=== PATIENT | male | born 1965 | race American Indian/Alaskan Native ===

== ENCOUNTER 2021-11-23 07:14 | Emergency (ER) | payer MEDICARE ==
--- NOTE | 2021-11-23 08:11 | XRay Report ---
CHEST 1 VIEW 11/23/2021 7:39 AM INDICATION / CLINICAL INFORMATION: esrd on h/d; missed dialysis x2; p/w sob. COMPARISON: 08/20/2021 FINDINGS: SUPPORT DEVICES: None. HEART / MEDIASTINUM: Stable upper limits normal in size. LUNGS / PLEURA: Bilateral lower lobe predominant perihilar opacities. Mild interstitial prominence. N o pneumothorax. ADDITIONAL FINDINGS: No significant additional findings. IMPRESSION: 1. Cardiomegaly and pulmonary edema. Signer Name: Jimmy Barrios MD Signed: 11/23/2021 8:07 AM Workstation Name: [email or web address]
--- NOTE | 2021-11-23 08:36 | Emergency Department Report ---
HPI - General Chief Complaint: Dyspnea/Respdistress PUI?: No Time Seen by Provider: 11/23/21 07:24 - HPI HPI: 56-year-old male with multiple medical comorbidities, including end-stage renal disease on hemodialysis Thursday, presents for evaluation of several days of progressively worsening shortness of breath and difficulty breathing status post missing his last 2 dialysis sessions. Patient states he last underwent hemodialysis on Friday, November 19, 2021. He denies any chest pain, abdominal pain, nausea vomiting fevers or chills. No URI symptoms. EMS placed the patient on BiPAP. Patient states pain is currently 0 out of 10. ED Past Medical Hx - Past Medical History Hx Hypertension: Yes Hx Renal Disease: Yes (HD , , Thu) - Social History Smoking Status: Unknown if ever smoked - Medications Home Medications: Home Medications Medication Instructions Recorded Confirmed Last Taken Type Apixaban [Eliquis] 5 mg PO Q12HR 30 Days #60 tablet 08/21/21 Unknown Rx Aspirin EC [Halfprin EC] 81 mg PO QDAY 08/21/21 08/21/21 Unknown History AtorvaSTATin [Lipitor] 40 mg PO QHS 30 Days #30 tablet 08/21/21 Unknown Rx NIFEdipine XL [Procardia Xl] 30 mg PO DAILY 30 Days #30 tablet 08/21/21 Unknown Rx carvediloL [Coreg] 25 mg PO BID 30 Days #60 tablet 08/21/21 Unknown Rx carvediloL [Coreg] 25 mg PO Q12H 08/21/21 08/21/21 Unknown History cloNIDine [Catapres] 0.1 mg PO BID 30 Days #60 tablet 08/21/21 Unknown Rx ED Review of Systems ROS: Stated complaint: JOSE DAVID Other details as noted in HPI Comment: All other systems reviewed and negative Respiratory: shortness of breath. denies: cough, orthopnea, SOB with exertion, SOB at rest, stridor Cardiovascular: as per HPI Physical Exam - Physical Exam Vital Signs: Vital Signs 11/23/21 11/23/21 07:46 07:58 Pulse Rate 113 H 113 H Respiratory 30 H 32 H Rate Blood Pressure 218/149 O2 Sat by Pulse 100 98 Oximetry Physical Exam: Gen: thin adult male, sitting in tripod position, dyspneic, diaphoretic, unable to speak; moderate respiratory distress HEENT: Normocephalic atraumatic pupils equally round and reactive to light e xtraocular muscles intact sclera anicteric Neck: Full range of motion, no midline spinal tenderness palpation, no JVD, no carotid bruits, no nuchal rigidity CVS: S1-S2 regular rate and rhythm with no gallops rubs or murmurs, chest wall nontender Pulmonary: coarse breath sounds in all lung guajardo; Abdomen: Soft nondistended nontender no guarding or rebound tenderness, no palpable deformities or step-offs, normal active bowel sounds, no hepatosplenomegaly, no pulsatile masses : Deferred Extremities: No cyanosis no clubbing no edema, intact distal peripheral pulses, Integumentary: Skin normal, no petechia no purpura no abscess no lacerations no evidence of trauma no evidence of infection Neuro: Patient is awake alert and oriented to person place time situation, mentating well, cranial nerves II through XII intact, no focal neurodeficits, sensation grossly tact Psych: Calm cooperative, mood affect normal ED Course Vital Signs 11/23/21 11/23/21 07:46 07:58 Pulse Rate 113 H 113 H Respiratory 30 H 32 H Rate Blood Pressure 218/149 O2 Sat by Pulse 100 98 Oximetry - Reevaluation(s) Reevaluation #1: 11/23/21 08:40 Pt reassessed; he is on bipap; he appears improved and is able to speak in full sentences; he states his stogy maker is Dr. Garay of [facility] ED Medical Decision Making - Lab Data Result diagrams: 11/23/21 08:35 11/23/21 08:35 - EKG Data -: EKG Interpreted by Me EKG shows normal: sinus rhythm Rate: tachycardia - EKG Data When compared to previous EKG there are: no significant change Interpretation: no acute changes 11/23/21 08:41 EKG interpreted by me: Ventricular rate 115 bpm. P waves are present and proceed every QRS complex. Intervals normal. No ST segment depressions or elevations. Patient has nonspecific T wave abnormalities in lateral leads. Left ventricular hypertrophy. No ectopic. No arrhythmia. Normal axis. Sinus tachycardia - Radiology Data Radiology results: report reviewed - Medical Decision Making 56yo M w/hx of ESRD on H/D Tue, Magda, Sat, bibems for evaluation of respiratory distress. The patient was hypoxic, tachypneic and dyspneic on arrival.He was emergently placed on bipap with concomittant improvement in his respiratory status. Labs and diagnostic imaging reviewed. Case reviewed with on-call stogy maker, . Per our discussion, patient to be admitted to the hospitalist service. He will arrange for the patient to undergo hemodialysis today. Critical Care Time: No Critical care attestation.: If time is entered above; I have spent that time in minutes in the direct care of this critically ill patient, excluding procedure time. ED Disposition Clinical Impression: Respiratory failure with hypoxia, Dialysis patient, noncompliant Disposition: ADMITTED INPATIENT Is pt being admited?: Yes Does the pt Need Aspirin: No Condition: Stable Instructions: Apixaban oral tablets
[2021-11-23 09:08] LABS: Basophils # (Auto) 0.1 K/mm3 (0.0-0.1); Basophils % (Auto) 0.6 % (0.0-1.8); Eosinophils # (Auto) 0.1 K/mm3 (0.0-0.4); Hematocrit 38.2 % (35.5-45.6); Hemoglobin 11.9 gm/dl (11.8-15.2); Lymphocytes # (Auto) 1.5 K/mm3 (1.2-5.4); Lymphocytes % (Auto) 10.6 % (13.4-35.0); Mean Corpuscular HGB Conc 31 % (32-34); Mean Corpuscular Volume 99 fl (84-94); Monocytes # (Auto) 0.6 K/mm3 (0.0-0.8); Monocytes % (Auto) 4.1 % (0.0-7.3); Platelet Count 279 K/mm3 (140-440); Red Blood Count 3.86 M/mm3 (3.65-5.03); Red Cell Distribution Width 17.4 % (13.2-15.2)
[2021-11-23] MEDS ORDERED: ACETAMINOPHEN 325 MG TAB PO PRN ×2 (09:13→09:25)
[2021-11-23] MEDS ORDERED: ONDANSETRON 4 MG/2 ML INJ IV PRN ×2 (09:13→09:25)
[2021-11-23] MEDS ORDERED: MORPHINE 2 MG/1 ML INJ IV PRN (09:13)
--- NOTE | 2021-11-23 09:24 | History and Physical Report ---
History of Present Illness Date of examination: 11/23/21 Date of admission: 11/23/21 Chief complaint: SOB 1 to 2 days History of present illness: 56-year-old male with multiple medical comorbidities, including end-stage renal disease on hemodialysis Thursday, presents for evaluation of several days of progressively worsening shortness of breath and difficulty breathing status post missing his last 2 dialysis sessions. Patient states he last underwent hemodialysis on Friday, November 19, 2021. He denies any chest pain, abdominal pain, nausea vomiting fevers or chills. No URI symptoms. EMS placed the patient on BiPAP. Patient states pain is currently 0 out of 10. - Past Medical History --Hypertension: Yes --Renal Disease: Yes (HD , , Thu) Surgery History --AV Fistula - Social History --Smoking Status: Unknown if ever smoked -Family History --Htn - Medications --Home Medications: Home Medications Medication Instructions Recorded Confirmed Last Taken Type Apixaban [Eliquis] 5 mg PO Q12HR 30 Days #60 tablet 08/21/21 Unknown Rx Aspirin EC [Halfprin EC] 81 mg PO QDAY 08/21/21 08/21/21 Unknown History AtorvaSTATin [Lipitor] 40 mg PO QHS 30 Days #30 tablet 08/21/21 Unknown Rx NIFEdipine XL [Procardia Xl] 30 mg PO DAILY 30 Days #30 tablet 08/21/21 Unknown Rx carvediloL [Coreg] 25 mg PO BID 30 Days #60 tablet 08/21/21 Unknown Rx carvediloL [Coreg] 25 mg PO Q12H 08/21/21 08/21/21 Unknown History cloNIDine [Catapres] 0.1 mg PO BID 30 Days #60 tablet 08/21/21 Unknown Rx Review of Systems ROS: Stated complaint: JOSE DAVID Other details as noted in HPI Comment: All other systems reviewed and negative Respiratory: shortness of breath. denies: cough, orthopnea, SOB with exertion, SOB at rest, stridor Cardiovascular: as per HPI Medications and Allergies Allergies Allergy/AdvReac Type Severity Reaction Status Date / Time lisinopril AdvReac Severe Cough Verified 08/21/21 10:46 Home Medications Medication Instructions Recorded Confirmed Last Taken Type Apixaban [Eliquis] 5 mg PO Q12HR 30 Days #60 tablet 08/21/21 Unknown Rx Aspirin EC [Halfprin EC] 81 mg PO QDAY 08/21/21 08/21/21 Unknown History AtorvaSTATin [Lipitor] 40 mg PO QHS 30 Days #30 tablet 08/21/21 Unknown Rx NIFEdipine XL [Procardia Xl] 30 mg PO DAILY 30 Days #30 tablet 08/21/21 Unknown Rx carvediloL [Coreg] 25 mg PO BID 30 Days #60 tablet 08/21/21 Unknown Rx carvediloL [Coreg] 25 mg PO Q12H 08/21/21 08/21/21 Unknown History cloNIDine [Catapres] 0.1 mg PO BID 30 Days #60 tablet 08/21/21 Unknown Rx Active Meds: Active Medications Acetaminophen (Acetaminophen 325 Mg Tab) 650 mg PO Q4H PRN PRN Reason: Pain MILD(1-3)/Fever >100.5/SCHWARTZ Morphine Sulfate (Morphine 2 Mg/1 Ml Inj) 2 mg IV Q4H PRN PRN Reason: Pain, Moderate (4-6) Ondansetron HCl (Ondansetron 4 Mg/2 Ml Inj) 4 mg IV Q8H PRN PRN Reason: Nausea And Vomiting Sodium Chloride (Sodium Chloride 0.9% 10 Ml Flush Syringe) 10 ml IV BID NIMESH Sodium Chloride (Sodium Chloride 0.9% 10 Ml Flush Syringe) 10 ml IV PRN PRN PRN Reason: LINE FLUSH Exam - Constitutional Vitals: Temp Pulse Resp BP Pulse Ox 113 H 32 H 218/149 98 11/23/21 07:58 11/23/21 07:58 11/23/21 07:46 11/23/21 07:58 General appearance: Present: no acute distress, well-nourished - EENT Eyes: Present: PERRL ENT: hearing intact, clear oral mucosa - Neck Neck: Present: supple, normal ROM - Respiratory Respiratory effort: normal Respiratory: bilateral: CTA, rales - Cardiovascular Heart rate: 78 Rhythm: regular Heart Sounds: Present: S1 & S2. Absent: rub, click - Extremities Extremities: no ischemia, pulses intact, pulses symmetrical, No edema Peripheral Pulses: within normal limits - Abdominal General gastrointestinal: Present: soft, non-tender, non-distended, normal bowel sounds Male genitourinary: Present: normal - Integumentary Integumentary: Present: clear, warm, dry - Musculoskeletal Musculoskeletal: gait normal, strength equal bilaterally - Psychiatric Psychiatric: appropriate mood/affect, intact judgment & insight - Neurologic Neurologic: CNII-XII intact, moves all extremities Results - Labs CBC & Chem 7: 11/23/21 08:35 11/23/21 08:35 Labs: Laboratory Last Values WBC 13.8 K/mm3 (4.5-11.0) H 11/23/21 08:35 RBC 3.86 M/mm3 (3.65-5.03) 11/23/21 08:35 Hgb 11.9 gm/dl (11.8-15.2) 11/23/21 08:35 Hct 38.2 % (35.5-45.6) 11/23/21 08:35 MCV 99 fl (84-94) H 11/23/21 08:35 MCH 31 pg (28-32) 11/23/21 08:35 MCHC 31 % (32-34) L 11/23/21 08:35 RDW 17.4 % (13.2-15.2) H 11/23/21 08:35 Plt Count 279 K/mm3 (140-440) 11/23/21 08:35 Lymph % (Auto) 10.6 % (13.4-35.0) L 11/23/21 08:35 [place] % (Auto) 4.1 % (0.0-7.3) 11/23/21 08:35 Eos % (Auto) 1.0 % (0.0-4.3) 11/23/21 08:35 Baso % (Auto) 0.6 % (0.0-1.8) 11/23/21 08:35 Lymph # (Auto) 1.5 K/mm3 (1.2-5.4) 11/23/21 08:35 [place] # (Auto) 0.6 K/mm3 (0.0-0.8) 11/23/21 08:35 Eos # (Auto) 0.1 K/mm3 (0.0-0.4) 11/23/21 08:35 Baso # (Auto) 0.1 K/mm3 (0.0-0.1) 11/23/21 08:35 Seg Neutrophils % 83.7 % (40.0-70.0) H 11/23/21 08:35 Seg Neutrophils # 11.6 K/mm3 (1.8-7.7) H 11/23/21 08:35 Assessment and Plan Advance Directives: Yes (Full code) VTE prophylaxis?: Chemical Plan of care discussed with patient/family: Yes - Patient Problems (1) Respiratory failure with hypoxia Current Visit: No Status: Acute Qualifiers: Chronicity: acute Qualified Code(s): J96.01 - Acute respiratory failure with hypoxia Plan to address problem: Low O2 sats Sec to volume overload (2) ESRD (end stage renal disease) Current Visit: No Status: Chronic Plan to address problem: Emergent HD Nephrlogy consulted (3) HTN (hypertension) Current Visit: No Status: Chronic Qualifiers: Hypertension type: primary hypertension Qualified Code(s): I10 - Essential (primary) hypertension Plan to address problem: Cont Antihypertensives (4) HLD (hyperlipidemia) Current Visit: Yes Status: Chronic Qualifiers: Hyperlipidemia type: mixed hyperlipidemia Qualified Code(s): E78.2 - Mixed hyperlipidemia Plan to address problem: Cont Statins (5) Dialysis patient, noncompliant Current Visit: No Status: Chronic Plan to address problem: Patient non compliant (6) DVT prophylaxis Current Visit: Yes Status: Acute Plan to address problem: On Heparin and GI prophylaxis (7) Advance care planning Current Visit: Yes Status: Acute Plan to address problem: Disease education conducted,,Care plan discussed ,Diagnosis Discussed,and and prognosis discussed. Patient acknowledged understanding with care plan +30 minutes. Patient is full code.
[2021-11-23 09:27] LABS: Alanine Aminotransferase 85 units/L (7-56); Albumin 3.6 g/dL (3.9-5); Blood Urea Nitrogen 93 mg/dL (9-20); Calcium 6.5 mg/dL (8.4-10.2); Hemolysis Index 23
[2021-11-23 09:30] LABS: BUN/Creatinine Ratio 4
[2021-11-23] MEDS: carvediloL 25 MG TAB PO SCH ×2 (10:00→22:38)
[2021-11-23] MEDS: cloNIDine 0.1 MG TAB PO SCH ×2 (10:00→22:00)
[2021-11-23] MEDS ORDERED: NON-FORMULARY EACH (Apixaban 5 MG Tablet) PO SCH (10:00)
[2021-11-23] MEDS ORDERED: ASPIRIN EC 81 MG TAB PO SCH (10:00)
[2021-11-23] MEDS ORDERED: NIFEdipine XL 30 MG TAB PO SCH (10:00)
[2021-11-23] MEDS: APIXABAN 5 MG TAB PO SCH ×2 (10:00→22:00)
--- NOTE | 2021-11-23 10:07 | Consultation ---
History of Present Illness - Reason for Consult Consult date: 11/23/21 end stage renal disease - History of Present Illness The patient is a 56 YO male with history significant for Hypertension, HLD, Paroxysmal A. fib, Anemia, ESRD on hemodialysis(TTS) and Medical non-compliance who presented to [facility] ED 11/23/21 with c/o sob for the past few days. Associated symptoms include cough and orthopnea. He missed HD on 11/21. Patient denies any N, V, abd pain, fever, chills, rash, leg swelling, cp, dizziness, hemoptysis or weakness. He was last dialyzed 4 days ago. Prior hospital admission with similar presentation. All lab and imaging studies reviewed. Patient is currently on BIPAP. Nephrology consulted for treatment of ESRD and volume overload. Past History Past Medical History: other (See HPI.) Medications and Allergies Allergies Allergy/AdvReac Type Severity Reaction Status Date / Time lisinopril AdvReac Severe Cough Verified 08/21/21 10:46 Home Medications Medication Instructions Recorded Confirmed Last Taken Type Apixaban [Eliquis] 5 mg PO Q12HR 30 Days #60 tablet 08/21/21 Unknown Rx Aspirin EC [Halfprin EC] 81 mg PO QDAY 08/21/21 08/21/21 Unknown History AtorvaSTATin [Lipitor] 40 mg PO QHS 30 Days #30 tablet 08/21/21 Unknown Rx NIFEdipine XL [Procardia Xl] 30 mg PO DAILY 30 Days #30 tablet 08/21/21 Unknown Rx carvediloL [Coreg] 25 mg PO BID 30 Days #60 tablet 08/21/21 Unknown Rx carvediloL [Coreg] 25 mg PO Q12H 08/21/21 08/21/21 Unknown History cloNIDine [Catapres] 0.1 mg PO BID 30 Days #60 tablet 08/21/21 Unknown Rx Active Meds: Active Medications Acetaminophen (Acetaminophen 325 Mg Tab) 650 mg PO Q4H PRN PRN Reason: Pain MILD(1-3)/Fever >100.5/SCHWARTZ Apixaban (Apixaban 5 Mg Tab) 5 mg PO Q12HR NIMESH Aspirin (Aspirin Ec 81 Mg Tab) 81 mg PO QDAY NIMESH Atorvastatin Calcium (Atorvastatin 40 Mg Tab) 40 mg PO QHS NIMESH Carvedilol (Carvedilol 25 Mg Tab) 25 mg PO BID NIMESH Clonidine HCl (Clonidine 0.1 Mg Tab) 0.1 mg PO BID NIMESH Morphine Sulfate (Morphine 2 Mg/1 Ml Inj) 2 mg IV Q4H PRN PRN Reason: Pain, Moderate (4-6) Nifedipine (Nifedipine Xl 30 Mg Tab) 30 mg PO DAILY NIMESH Ondansetron HCl (Ondansetron 4 Mg/2 Ml Inj) 4 mg IV Q8H PRN PRN Reason: Nausea And Vomiting Sodium Chloride (Sodium Chloride 0.9% 10 Ml Flush Syringe) 10 ml IV BID NIMESH Sodium Chloride (Sodium Chloride 0.9% 10 Ml Flush Syringe) 10 ml IV PRN PRN PRN Reason: LINE FLUSH Sodium Chloride (Sodium Chloride 0.9% 10 Ml Flush Syringe) 10 ml IV BID NIMESH Sodium Chloride (Sodium Chloride 0.9% 10 Ml Flush Syringe) 10 ml IV PRN PRN PRN Reason: LINE FLUSH Review of Systems All systems: negative Exam - Vital Signs Vital signs: Vital Signs Pulse Ox 90 11/23/21 07:34 Results - Lab Results 11/23/21 08:35 11/23/21 08:35 Most recent lab results Calcium 6.5 mg/dL (8.4-10.2) L 11/23/21 08:35 Assessment and Plan 1. ESRD: Patient is on maintenance hemodialysis, TTS schedule. Last outpatient HD 11/19. Hemodialysis: today. 2. FEN: Volume overload, UF with HD, monitor. Anion-gap metabolic acidosis, HD today, monitor. Counseled to limit fluid intake. Monitor lytes and volume status. 3. Acute hypoxic respiratory failure, POA: 2/2 Acute pulmonary edema in the setting of volume overload. Volume control thru HD. on BIPAP, wean as tolerated. 4. Hx Paroxysmal A.fib: Eliquis. 5. Hypertension: Continue home meds. Volume control thru HD. Follow BP. 6. Mild Anemia, POA: Chronic. Epogen with HD as needed. Monitor. Subjective: Patient was seen and examined at the bedside. Examination: General appearance: well-developed, appears stated age, resp distress noted, on BIPAP HEENT: [place] Neck: trachea midline, JVD Respiratory: bilateral rales and wheezing heard Heart: S1S2, no murmur Abdomen: soft, bowel sounds heard, NT, no palpable mass Integumentary: no obvious rash Neurologic: AO, non-focal Ext: no edema Hemodialysis access: L FA AVF
[2021-11-23] MEDS ORDERED: HEPARIN 10,000 UNITS/10 ML VIAL IV PRN ×2 (10:08)
[2021-11-23] MEDS ORDERED: SODIUM CHLORIDE 0.9% 100 ML IV PRN (10:08)
[2021-11-23 14:18] LABS: Hepatitis B Surface Antigen Non-Reactive (Negative); Hepatitis C Virus Antibody Non-Reactive (NonReactive)
--- NOTE | 2021-11-23 22:36 | Event Note ---
Date: 11/23/21 Patient had dialysis Reevaluated Patient on CPAP Patient could not be discharged. May need 1 more hemodialysis session tomorrow. Nephrology informed
[2021-11-24 02:58] LABS: Basophils % (Auto) 0.3 % (0.0-1.8); Eosinophils % (Auto) 0.1 % (0.0-4.3); Hematocrit 36.2 % (35.5-45.6); Hemoglobin 11.3 gm/dl (11.8-15.2); Lymphocytes % (Auto) 8.9 % (13.4-35.0); Mean Corpuscular HGB Conc 31 % (32-34); Mean Corpuscular Volume 96 fl (84-94); Monocytes # (Auto) 1.2 K/mm3 (0.0-0.8); Monocytes % (Auto) 9.8 % (0.0-7.3); Platelet Count 208 K/mm3 (140-440); Red Blood Count 3.77 M/mm3 (3.65-5.03); Red Cell Distribution Width 17.5 % (13.2-15.2)
[2021-11-24 03:24] LABS: Calcium 7.4 mg/dL (8.4-10.2)
[2021-11-24 09:45] VITALS: BP 125/65
--- NOTE | 2021-11-26 13:45 | Electrocardiograph Report ---
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
== END 2021-11-24 09:44 | disposition admitted as inpatient to this hospital (09) ==
LOC: SUATTDRO 07:14 → ED 07:14
PROVIDERS: ATTEND Internal Medicine
DX: J96.01 Acute respiratory failure with hypoxia (principal); Z99.2 Dependence on renal dialysis; I12.0 Hypertensive chronic kidney disease with stage 5 chronic kidney disease or end stage renal disease; N18.6 End stage renal disease
CPT/HCPCS: 36415; 71045; 80048; 80053; 80074; 83880; 85025; 93005; 96374; 99284; J3490; 96375